=== PATIENT | male | born 1940 | race Caucasian/White ===

== ENCOUNTER 2016-09-14 08:04 | Outpatient (CLI) | payer MEDICARE ==
[2016-09-14 08:57] LABS: ALT (SGPT) 15 U/L (0-55); AST (SGOT) 14 U/L (5-34); Alkaline Phosphatase 64 U/L (40-150); Anion Gap 12 mmol/L (10-20); BUN (Urea Nitrogen) 22 mg/dL (8.4-25.7); Bilirubin, Total 0.8 mg/dL (0.2-1.2); Calc. Creatinine Clearance 0 mL/min (70-130); Calcium 8.8 mg/dL (7.8-10.44); Carbon Dioxide 25 mmol/L (23-31); Chloride 108 mmol/L (98-107); Estimated GFR-MDRD 73; Globulin 2.8 g/dL (2.4-3.5); LDL Cholesterol, Calculated 56 mg/dL; Protein, Total 6.8 g/dL (5.8-8.1)
== END 2016-09-14 08:05 | disposition home or self-care (01) ==
LOC: BURLAB 08:04
PROVIDERS: ATTEND Internal Medicine Endocrinology, Diabetes & Metabolism
DX: E78.9 Disorder of lipoprotein metabolism, unspecified (principal); E03.9 Hypothyroidism, unspecified; E11.9 Type 2 diabetes mellitus without complications; I10 Essential (primary) hypertension
CPT/HCPCS: 36415; 80053; 80061; 83036

== ENCOUNTER 2016-09-14 09:20 | Outpatient (CLI) | payer MEDICARE ==
--- NOTE | 2016-09-15 07:21 | RAD ---
THREE VIEWS LEFT KNEE: Indication: Left knee osteoarthritis. FINDINGS: There is near complete joint space loss of the lateral compartment. There is a focal excrescent tony nating from the anterior aspect of the distal femoral metaphyseal region, likely an osteochondroma. Moderate joint capsular distention is present. There is vascular calcification. No fracture or di slocation present. Moderate to severe osteoarthritis preferentially involving the lateral compartme nt. Presumed small osteochondroma of the distal femur. IMPRESSION: No fracture or dislocation. Prominent joint capsular distention. Correlate clinically. POS: [facility]
== END 2016-09-14 09:21 | disposition home or self-care (01) ==
LOC: BURRAD 09:20
PROVIDERS: ATTEND Family Medicine
DX: M17.12 Unilateral primary osteoarthritis, left knee (principal)

== ENCOUNTER 2016-12-16 08:24 | Outpatient (CLI) | payer MEDICARE ==
[2016-12-16 09:38] LABS: ALT (SGPT) 16 U/L (8-55); AST (SGOT) 16 U/L (5-34); Albumin 3.9 g/dL (3.4-4.8); Alkaline Phosphatase 60 U/L (40-150); Anion Gap 15 mmol/L (10-20); BUN (Urea Nitrogen) 25 mg/dL (8.4-25.7); Bilirubin, Total 1.3 mg/dL (0.2-1.2); Calc. Creatinine Clearance 0 mL/min (70-130); Calcium 8.8 mg/dL (7.8-10.44); Carbon Dioxide 24 mmol/L (23-31); Chloride 105 mmol/L (98-107); Estimated GFR-MDRD 70; Globulin 2.2 g/dL (2.4-3.5); Glucose 124 mg/dL (83-110); Potassium 4.5 mmol/L (3.5-5.1); Protein, Total 6.1 g/dL (5.8-8.1); Sodium 139 mmol/L (136-145)
[2016-12-16 10:21] LABS: Hemoglobin A1c 6.2 % (4.0-6.0)
[2016-12-16 10:31] LABS: Free T4 (Free Thyroxine) 1.03 ng/dL (0.70-1.48); Thyroid Stimulating Hormone 0.58 uIU/mL (0.35-4.94)
[2016-12-16 19:38] LABS: Creatinine, Urine 122.84 mg/dL (63-166); Microalbumin Urine Less than 1.0 mg/dL (0.5-50.0); Microalbumin/Creat Ratio 8.1 mg/g (Less than 30)
== END 2016-12-16 08:25 | disposition home or self-care (01) ==
LOC: BURLAB 08:24
PROVIDERS: ATTEND Internal Medicine Endocrinology, Diabetes & Metabolism
DX: E11.9 Type 2 diabetes mellitus without complications (principal); E03.9 Hypothyroidism, unspecified; E78.9 Disorder of lipoprotein metabolism, unspecified; I10 Essential (primary) hypertension
CPT/HCPCS: 36415; 80053; 82043; 83036; 84439; 84443

== ENCOUNTER 2019-11-02 10:22 | Emergency (ER) | payer MEDICARE ==
[2019-11-02 10:59] LABS: #Monocytes 0.5 thou/uL (0.11-0.59); #Neutrophils 5.7 thou/uL (1.40-6.50); %Basophils 0.5 % (0.0-1.0); %Eosinophils 0.7 % (0.0-10.0); %Lymphocytes 13.8 % (21.0-51.0); %Monocytes 7.1 % (0.0-10.0); %Neutrophils 77.8 % (42.0-75.0); Hemoglobin 12.6 g/dL (14.0-18.0); Mean Corpuscular Hemoglobin 29.9 pg (27.0-31.0); Mean Corpuscular Volume 93.3 fL (78.0-98.0); Mean Platelet Volume 7.4 fL (7.4-10.4); Platelet Count 208 thou/uL (130-400); RBC Distribution Width 11.9 % (11.5-14.5); Red Blood Cell (RBC) Count 4.22 mill/uL (4.70-6.10); White Blood Cell (WBC) Count 7.3 thou/uL (4.8-10.8)
[2019-11-02 11:16] LABS: ALT (SGPT) 19 U/L (8-55); AST (SGOT) 16 U/L (5-34); Albumin 4.1 g/dL (3.4-4.8); Alkaline Phosphatase 59 U/L (40-110); Anion Gap 15 mmol/L (10-20); BUN (Urea Nitrogen) 20 mg/dL (8.4-25.7); Bilirubin, Total 0.6 mg/dL (0.2-1.2); Calc. Creatinine Clearance 0 mL/min (70-130); Calcium 9.1 mg/dL (7.8-10.44); Carbon Dioxide 22 mmol/L (23-31); Chloride 104 mmol/L (98-107); Estimated GFR-MDRD 62; Globulin 2.8 g/dL (2.4-3.5); Glucose 238 mg/dL (83-110); Lipase 27 U/L (8-78); Magnesium 1.6 mg/dL (1.6-2.6); Potassium 4.6 mmol/L (3.5-5.1); Protein, Total 6.9 g/dL (5.8-8.1); Sodium 136 mmol/L (136-145)
[2019-11-02 11:35] LABS: Bilirubin Negative (Negative); Blood, Urine Negative (Negative); Clarity Clear (Clear); Glucose, Urine (Dipstick) 250 mg/dL (Negative); Leukocyte Negative (Negative); Nitrite Negative (Negative); Protein, Urine (Dipstick) Negative (Neg-Trace); Urobilinogen 0.2 mg/dL (Less than 2)
[2019-11-02 13:28] LABS: Lactic Acid 1.6 mmol/L (0.5-2.2)
--- NOTE | 2019-11-02 16:58 | RAD ---
PORTABLE CHEST: 11/02/19 An AP portable film at 1058 shows mild cardiomegaly but no congestive change. No focal pulmonary inf iltrate was seen. There are no effusions. IMPRESSION: No acute findings. POS: HOME
--- NOTE | 2019-11-02 17:44 | CT ---
CT OF THE BRAIN WITHOUT CONTRAST: 11/02/[address] was performed. The ventricles are somewhat generous in size but show no shift. Part of this is probably related to age and atrophy. No intracranial bleeding or mass was seen. There was a focal low density area in the high left parietal region that may be more likely old than new and po ssibly related to chronic ischemic change, however, with no comparison study, I cannot be sure of its age. No mass or bleeding was seen. IMPRESSION: Presumed old chronic changes in the high left parietal lobe, but further studies could be done (MRI) if the patient's symptoms indicate the need to investigate further. Initial findings called to [facility] in the ER at 1057 on 11/02/2019. Follow up conversation had with Davonte Jama regarding the parietal finding and possible need for follow up on the evening of 11/02/2019 POS: HOME
== END 2019-11-02 13:20 | disposition short-term general hospital (02) ==
LOC: BURERS 10:22
DX: G45.9 Transient cerebral ischemic attack, unspecified (principal); E11.65 Type 2 diabetes mellitus with hyperglycemia; R74.0 Nonspecific elevation of levels of transaminase and lactic acid dehydrogenase [LDH]; I25.2 Old myocardial infarction; I10 Essential (primary) hypertension; Z79.84 Long term (current) use of oral hypoglycemic drugs; Z79.82 Long term (current) use of aspirin; Z79.899 Other long term (current) drug therapy
CPT/HCPCS: 36416; 51701; 70450; 71045; 80053; 81003; 83605; 83690; 83735; 84484; 85025; 93005; 94760; 96360; 36415-59

== ENCOUNTER 2019-12-31 13:45 | Emergency (ER) | payer MEDICARE ==
[2019-12-31 14:37] LABS: #Basophils 0.1 thou/uL (0.0-0.2); #Eosinphils 0.1 thou/uL (0.0-0.7); #Lymphocytes 1.1 thou/uL (1.20-3.40); #Monocytes 1.2 thou/uL (0.11-0.59); %Basophils 0.5 % (0.0-1.0); %Eosinophils 0.6 % (0.0-10.0); %Lymphocytes 7.6 % (21.0-51.0); %Monocytes 8.5 % (0.0-10.0); %Neutrophils 82.8 % (42.0-75.0); Hemoglobin 12.4 g/dL (14.0-18.0); Mean Corpuscular Hemoglobin 29.6 pg (27.0-31.0); Mean Corpuscular Volume 95.5 fL (78.0-98.0); Mean Platelet Volume 6.6 fL (7.4-10.4); Platelet Count 262 thou/uL (130-400); RBC Distribution Width 11.7 % (11.5-14.5); Red Blood Cell (RBC) Count 4.19 mill/uL (4.70-6.10); White Blood Cell (WBC) Count 14.5 thou/uL (4.8-10.8)
[2019-12-31 14:49] LABS: ALT (SGPT) 23 U/L (8-55); AST (SGOT) 19 U/L (5-34); Albumin 4.2 g/dL (3.4-4.8); Alkaline Phosphatase 80 U/L (40-110); Anion Gap 14 mmol/L (10-20); BUN (Urea Nitrogen) 47 mg/dL (8.4-25.7); Bilirubin, Total 0.7 mg/dL (0.2-1.2); Calc. Creatinine Clearance 0 mL/min (70-130); Calcium 9.6 mg/dL (7.8-10.44); Carbon Dioxide 20 mmol/L (23-31); Chloride 107 mmol/L (98-107); Estimated GFR-MDRD 21; Globulin 3.5 g/dL (2.4-3.5); Glucose 142 mg/dL (83-110); Lipase 109 U/L (8-78); Potassium 6.3 mmol/L (3.5-5.1); Protein, Total 7.7 g/dL (5.8-8.1); Sodium 135 mmol/L (136-145)
[2019-12-31] MEDS ORDERED: Morphine 4 MG/ML VIAL ONE (14:52)
[2019-12-31] MEDS ORDERED: Ondansetron PF 4 MG/2 ML Vial ONE (14:52)
[2019-12-31 15:22] LABS: Bilirubin Negative (Negative); Blood, Urine Moderate (Negative); Clarity Cloudy (Clear); Glucose, Urine (Dipstick) Negative (Negative); Leukocyte Negative (Negative); Nitrite Negative (Negative); Protein, Urine (Dipstick) Negative (Neg-Trace); Urobilinogen 0.2 mg/dL (Less than 2)
[2019-12-31 15:29] LABS: RBC/HPF 21-50 HPF (0-3); Squamous Epithelial 0-3 HPF (0-3); WBC/HPF 0-3 HPF (0-3)
[2019-12-31 15:35] LABS: Bacteria/HPF Rare-Few HPF (None Seen)
[2019-12-31] MEDS ORDERED: Calcium Gluc 4.6 MEQ/10 ML (100 MG/ML) ONE (15:44)
[2019-12-31] MEDS ORDERED: Insulin Regular 300 UNITS/3 ML VIAL ONE (15:44)
[2019-12-31] MEDS ORDERED: Dextrose 50% Abboject 50 ML SYRINGE ONE (15:44)
--- NOTE | 2019-12-31 16:06 | CT ---
CT ABDOMEN AND PELVIS WITHOUT CONTRAST: Date: 12-31-[address] of the abdomen and pelvis was done for evaluation for abdominal pain, particularly in the r egion of the left lower quadrant. The scan was done without contrast given a very low GSR. FINDINGS: The lung bases are clear except for some minor streaking which could be fibrosis or atelectasis. The liver, spleen, pancreas, gallbladder, adrenal glands, and abdominal aorta showed no acute findings wi thin the limitations of a noncontrast study. There are several exophytic cysts seen around each kidney, the largest being in the left kidney measu ring about 3 cm in size. There is some very mild right hydronephrosis. There is some stranding around this kidney and particularly some stranding around the proximal right ureter around the UPJ. My unde rstanding is that the patient is not symptomatic on this side. See discussion below. The bowel shows no dilatation or wall thickening. The appendix appears normal. Some diverticula were noted but there is no current finding of diverticulitis. There is no free air or free fluid. CT of the pelvis showed no pelvic masses, fluid collections, or inflammatory changes. A Dawn cathete r has been inserted. The bladder is now decompressed. The prostate is moderately large. Extensive deg enerative changes are seen in the spine. IMPRESSION: 1. No evidence of diverticulitis or inflammatory changes of concern in the left lower quadrant. 2. Minor right hydronephrosis with some stranding around the right kidney and particularly around the proximal right ureter. Since this is not the site of the patient's pain, It is probably not connecte d to his current symptoms. However, entities that could cause this appearance would include infection , a recently passed stone, and sometime transitional cell carcinoma. It might be troncoso to get some farrah ctive urological follow up at some point to take another look at this area. Findings discussed with Dr. Fernandes at 1536 on 12-31-2019. POS: HOME
[2019-12-31] MEDS ORDERED: Sodium Bicarb 50 MEQ/50 ML Abboject 8.4% SYRINGE ONE (16:48)
== END 2019-12-31 17:49 | disposition short-term general hospital (02) ==
LOC: BURERS 13:45
DX: N17.9 Acute kidney failure, unspecified (principal); R33.9 Retention of urine, unspecified; E87.5 Hyperkalemia; E78.00 Pure hypercholesterolemia, unspecified; I25.2 Old myocardial infarction; I10 Essential (primary) hypertension; E11.9 Type 2 diabetes mellitus without complications; Z79.899 Other long term (current) drug therapy; Z79.84 Long term (current) use of oral hypoglycemic drugs
CPT/HCPCS: 51702; 74176; 80053; 81003; 81015; 83605; 83690; 84484; 85025; 87086; 93005; 96361; 96374; 96375; J1815; J2270; J2405

== ENCOUNTER 2020-02-29 13:00 | Outpatient (CLI) | payer MEDICARE ==
[2020-02-29 13:13] LABS: Bilirubin Small (Negative); Blood, Urine Small (Negative); Clarity Slightly Cloudy (Clear); Glucose, Urine (Dipstick) Negative (Negative); Ketone, Urine Trace mg/dL (Negative); Leukocyte Trace (Negative); Nitrite Negative (Negative); Protein, Urine (Dipstick) > or equal to 300 mg/dL (Neg-Trace); Urobilinogen 0.2 mg/dL (Less than 2); pH, Urine 5.5 (5.0-9.0)
[2020-02-29 13:25] LABS: Specific Gravity, Urine 1.022 (1.002-1.036)
[2020-02-29 13:31] LABS: Bacteria/HPF Rare-Few HPF (None Seen); Calcium Oxalate Crystals Rare HPF (None Seen); RBC/HPF 0-3 HPF (0-3)
== END 2020-02-29 13:01 | disposition home or self-care (01) ==
LOC: BURLABSP 13:00
PROVIDERS: ATTEND Urology
DX: N40.1 Benign prostatic hyperplasia with lower urinary tract symptoms (principal)
CPT/HCPCS: 81001; 87086